=== PATIENT | female | born 1995 | race Two or more races ===

== ENCOUNTER 2016-09-01 16:59 | Emergency (ER) | payer MEDICAID, OTHER ==
[~2016-09-01] VITALS: Ht 152.4 cm; Wt 45.4 kg
[~2016-09-01 16:59] MED LIST: ACETIC ACID15 ML LEFT EAR; AMOXICILLIN500 M1 PO; DEBROX15 M1 BOTH EARS; NKM; NORCO 5-325 TA1 EACH ORAL
[2016-09-01 17:13] VITALS: BP 121/65
[2016-09-01 17:25] LABS: APPEARANCE,URINE CLEAR; KETONES,URINE NEGATIVE (NEGATIVE); LEUKOCYTE ESTERASE ,URINE NEGATIVE (NEGATIVE); NITRITE,URINE NEGATIVE (NEGATIVE); PH,URINE 8 (4.5-8.0); PROTEIN,URINE NEGATIVE (NEGATIVE); UROBILINOGEN,URINE NORMAL MG/DL (0.0-1.0)
[2016-09-01] MEDS ORDERED: IBUPROFEN600 MG ORAL (17:52)
[2016-09-01] MEDS ORDERED: ROBAXIN-750750 MG PO (17:52)
[2016-09-01 18:00] VITALS: BP 121/65
--- NOTE | 2016-09-01 22:01 | Emergency Room Report ---
History of Present Illness General Chief Complaint: Female Urogenital Problems Source: Patient Present Illness [facility] The patient is a 21-year-old female presenting for back pain and dysuria. She states the symptoms began one week prior. Pain described as a 6/10 burning sensation to the vaginal region and occurs only with urination. She denies radiating pain. She denies other symptoms including N, V, F, chills, abd pain, vaginal itching, vaginal DC, hematuria, increased urinary frequency Allergies: Coded Allergies: No Known Allergies (Unverified , 12/11/13) Patient History Past Medical History: see triage record Pertinent Family History: none Last Menstrual Period: 08/04/16 Now: No : 0 Para: 0 Reviewed Nursing Documentation: PMH: Agreed, PSxH: Agreed Nursing Documentation-PMH Past Medical History: No Stated History Review of Systems All Other Systems: negative except mentioned in HPI Physical Exam Vital Signs Date Time Temp Pulse Resp B/P Pulse Ox O2 Delivery O2 Flow Rate FiO2 09/01/16 17:04 98.4 67 18 117/68 100 Room Air Sp02 EP Interpretation: reviewed, normal General Appearance: no apparent distress, alert, GCS 15, non-toxic ENT: hearing grossly normal, normal pharynx, no angioedema, normal voice Gastrointestinal: normal bowel sounds, non tender, soft, non-distended, no guarding, no rebound Genitourinary: normal inspection, no CVA tenderness Musculoskeletal: gait/station normal, normal range of motion, tender - TTP over the Inferior lumbar paraspinous muscles Neurologic: alert, oriented x3, responsive, motor strength/tone normal, sensory intact, speech normal Psychiatric: judgement/insight normal, memory normal, mood/affect normal, no suicidal/homicidal ideation Skin: normal color, no rash, warm/dry, well hydrated Lymphatic: no adenopathy Medical Decision Making PA Attestation Dr. Colon is my supervising physician. Patient management was discussed with my supervising physician Diagnostic Impression: Primary Impression: Muscle strain ER Course The patient is a 21-year-old female presenting for back pain and dysuria. Differential diagnosis considered but not limited to: UTI, vaginitis, pyelonephritis, muscle strain PE: vitals WNL. NAD Abdomen: Normal appearance. Non distended. No ecchymosis. Normal BS. Non TTP. No McBurney point tenderness. No guarding. No CVA tenderness TTP over the Inferior lumbar paraspinous muscles. No midline tenderness UA shows no signs of infection She will be treated for musculoskeletal pain and will be discharged home. The patient was informed that if any bacteria grooving urine culture, she would be called in a prescription for antibiotics will be given. She agrees with this plan Laboratory Tests Test 09/01/16 17:11 Urine Color Pale yellow Urine Appearance Clear Urine pH 8 (4.5-8.0) Urine Specific [employer] 1.015 (1.005-1.035) Urine Protein Negative (NEGATIVE) Urine Glucose (UA) Negative (NEGATIVE) Urine Ketones Negative (NEGATIVE) Urine Occult Blood Negative (NEGATIVE) Urine Nitrite Negative (NEGATIVE) Urine Bilirubin Negative (NEGATIVE) Urine Urobilinogen Normal MG/DL (0.0-1.0) Urine Leukocyte Esterase Negative (NEGATIVE) Urine HCG, Qualitative Negative Lab Results Impression No signs of infection Last Vital Signs Date Time Temp Pulse Resp B/P Pulse Ox O2 Delivery O2 Flow Rate FiO2 09/01/16 18:00 98.2 69 17 121/65 99 Room Air Status: improved Disposition: HOME, SELF-CARE Condition: Improved Scripts Methocarbamol* (ROBAXIN-750*) 750 Mg Tablet 750 MG PO TID, #21 TAB 0 Refills Prov: BECKY BALDERAS 09/01/16 Ibuprofen* (MOTRIN*) 600 Mg Tablet 600 MG ORAL Q8H Y for For Pain, #30 TAB 0 Refills Prov: BECKY BALDERAS.A. 09/01/16 Patient Instructions: Muscle Strain Additional Instructions: I discussed my findings with the patient. All questions and concerns have been answered. Treatment and medication compliance have been addressed. I advised the patient that they need to follow up with PMD in 3-5 days. Return to ED if symptoms worsen, new symptoms arise, or if needed for any reason. Patient verbalized understanding of discharge instructions. BECKY BALDERAS Sep 01, 2016 22:01
== END 2016-09-01 18:01 | disposition home or self-care (01) ==
LOC: EMR 17:31
DX: S39.012A Strain of muscle, fascia and tendon of lower back, initial encounter (principal); X58.XXXA Exposure to other specified factors, initial encounter; Y92.89 Other specified places as the place of occurrence of the external cause
CPT/HCPCS: 81003; 81025; 87086; 99284